=== PATIENT | female | born 1970 | race Caucasian/White ===

== ENCOUNTER 2017-01-24 05:46 | Emergency (ER) | payer BC ==
--- NOTE | ~2017-01-24 | ER ---
PATIENT'S NAME: MARIA A WEBB [facility] AGE: 46 Y [address] ROOM: [place] [address] LOCATION: [facility] ADMIT DATE: 01/24/2017 ER/Outpatient Report DISCHARGE DATE: FAMILY PHYSICIAN: PHYSICIAN, NO ATTENDING PHYSICIAN: Pete Moya Time of Arrival: 0546 hours. Time of Evaluation: 0606 hours. IDENTIFICATION: A 46-year-old female. CHIEF COMPLAINT: Imbedded fishhook. HISTORY OF PRESENT ILLNESS: The patient is a 46-year-old female who was walking to the laundry room and stepped on a fishhook that is imbedded in her inner left middle toe on the plantar surface right at the crease of the DIP joint. No other injuries. ALLERGIES: NO KNOWN DRUG ALLERGIES. CURRENT MEDICATIONS: Denies. MEDICAL PROBLEMS: Denies. PRIOR SURGERIES: Appendectomy, cholecystectomy, ectopic . SOCIAL HISTORY: The patient works at the [employer]. She is . She lives here in town. Tobacco use, denies. Alcohol use, denies. Drug use, denies. IMMUNIZATION: Tetanus is not current. PHYSICAL EXAMINATION: VITAL SIGNS: Weight 115.8 kilogram, blood pressure 154/77, pulse 99, respirations 18, temperature 97.8, and saturations 95% on room air. GENERAL: A 46-year-old female, in no acute distress. EXTREMITIES: Left lower extremity neurovascularly intact. She has a fishhook imbedded at the IP crease on the plantar surface of her left foot. PATIENT'S NAME: MARIA A WEBB [facility] AGE: 46 Y [address] ROOM: [place] [address] LOCATION: [facility] ADMIT DATE: 01/24/2017 ER/Outpatient Report DISCHARGE DATE: FAMILY PHYSICIAN: PHYSICIAN, NO ATTENDING PHYSICIAN: Pete Moya EMERGENCY DEPARTMENT COURSE: The area was cleansed with Betadine and anesthetized with 1% lidocaine without epinephrine by Dr. Quick, resident. I observed the procedure. The string technique was used for removal of the fishhook, and Steri-Strip was applied. IMPRESSION: Imbedded fishhook, left third toe. PLAN: Wound care discussed. Keflex 500 mg t.i.d. for 7 days. Tetanus was boosted. Tylenol or Advil for pain, and follow up with her physician of choice as needed. The patient understands and agrees. All questions have been answered. MD ANTONY PATTON/ruddy /[id number] d: 01/24/17 0708 t: 01/24/17 1029, OUTPATIENT REPORT
== END 2017-01-24 06:28 | disposition disaster alternative care site (69) ==
LOC: GACC 05:46
DX: S90.455A Superficial foreign body, left lesser toe(s), initial encounter (principal); Z90.49 Acquired absence of other specified parts of digestive tract; Z23 Encounter for immunization; W45.8XXA Other foreign body or object entering through skin, initial encounter